=== PATIENT | male | born 1980 | race Caucasian/White ===

== ENCOUNTER 2016-11-01 08:41 | Emergency (ER) | payer MEDICAID ==
[2016-11-01 09:27] LABS: BASOPHILS 0.1 % (0-2); HEMATOCRIT 38.6 % (42.0-54.0); HEMOGLOBIN 12.3 g/dL (13.5-17.5); IMMATURE GRANULOCYTES 0.8 % (0-5); MCH 27.2 pg (26.0-34.0); MCHC 31.9 g/dL (31.0-37.0); MCV 85.2 fL (80.0-100.0); MEAN PLATELET VOLUME 10.6 fL (7.4-10.4); MONOCYTES 8.4 % (2-11); NEUTROPHILS 75.7 % (40-80); PLATELET COUNT 198 10x3/uL (130-400); RBC 4.53 10x6/uL (4.20-6.10); RDW 15.5 % (11.5-14.5); WBC 13.1 10x3/uL (4.8-10.8)
[2016-11-01 09:34] LABS: APPEARANCE SLT CLOUDY (CLEAR); BACTERIA MODERATE /hpf (NONE SEEN); BILIRUBIN NEGATIVE (NEGATIVE); COLOR YELLOW (YELLOW); GLUCOSE NEGATIVE (NEGATIVE); HYALINE CAST 0-5 /lpf (NONE SEEN); KETONE NEGATIVE (NEGATIVE); LEUKOCYTE ESTERASE 1+ (NEGATIVE); MUCUS <1+ /lpf (NONE SEEN); NITRITE NEGATIVE (NEGATIVE); PROTEIN 3+ mg/dL (NEGATIVE); RED CELLS - URINE 25-50 /hpf (0-5); SPECIFIC GRAVITY 1.025 (1.005-1.020); UROBILINOGEN NORMAL (NORMAL); WHITE CELLS - URINE >50 /hpf (0-5)
[2016-11-01 09:35] LABS: GRANULAR CAST OCC /lpf (NONE SEEN)
[2016-11-01 09:42] LABS: ALBUMIN 2.7 g/dL (3.4-5.0); ALKALINE PHOSPHATASE 77 U/L (46-116); ALT (SGPT) 152 U/L (10-68); BILIRUBIN - TOTAL 0.31 mg/dL (0.2-1.3); CALC OSMOLALITY 291 mosm/kg (275-300); CALCIUM 8.4 mg/dL (8.5-10.1); CARBON DIOXIDE 24.2 mmol/L (21.0-32.0); CHLORIDE - SERUM 108 mmol/L (98-107); CREATININE - SERUM 1.7 mg/dL (0.6-1.3); GLUCOSE 106 mg/dL (74-106); PROTEIN - SERUM 6.7 g/dL (6.4-8.2); SODIUM 139 mmol/L (136-145); UREA NITROGEN 53 mg/dL (7-18); eGFR NON AFRICAN AMERICAN 49 mL/min (90-120)
[2016-11-01 09:53] LABS: C-REACTIVE PROTEIN 2.6 mg/dL (0.0-0.9); CREATINE KINASE 303 UL (21-232); PRO BNP 398 pg/mL (0-125)
[2016-11-01 09:58] LABS: TROPONIN-I < 0.017 ng/mL (0.000-0.060)
[2016-11-01 11:45] LABS: COMPLEMENT C4 14.9 mg/dL (17.4-52.2)
[2016-11-01 12:30] LABS: ERYTHROCYTE SEDIMENTATION RATE 23 mm/hr (0-15)
[2016-11-04 10:11] LABS: ANTI-GLOMERULAR BASMENT MEMBRN 3 units (0-20)
[2016-11-04 11:11] LABS: ANA REFLEX - DIRECT Negative (Negative)
[2016-11-05 09:16] LABS: SPE - A/G RATIO 0.9 (0.7-1.7); SPE - ALPHA-1 GLOBULIN 0.2 g/dL (0.0-0.4); SPE - ALPHA-2 GLOBULIN 0.7 g/dL (0.4-1.0); SPE - BETA GLOBULIN 0.9 g/dL (0.7-1.3); SPE - GAMMA GLOBULIN 1.5 g/dL (0.4-1.8); SPE - M-SPIKE Not Observed g/dL (Not Observed); SPE - TOTAL PROTEIN 6.3 g/dL (6.0-8.5)
[2016-11-05 17:11] LABS: ANCA - ANTIMYELOPEROXIDASE <9.0 U/mL (0.0-9.0); ANCA - ANTIPROTEINASE 3 <3.5 U/mL (0.0-3.5); ANCA - ATYPICAL <1:20 titer (Neg:<1:20); ANCA - CYTOPLASMIC <1:20 titer (Neg:<1:20); ANCA - PERINUCLEAR <1:20 titer (Neg:<1:20)
== END 2016-11-01 13:48 | disposition home or self-care (01) ==
LOC: D.ER 08:41
PROVIDERS: Family Medicine; Internal Medicine Nephrology
DX: N28.9 Disorder of kidney and ureter, unspecified (principal); R31.9 Hematuria, unspecified; R80.9 Proteinuria, unspecified

== ENCOUNTER 2016-11-07 10:16 | Emergency (ER) | payer MEDICAID ==
[~2016-11-07] VITALS: Ht 167.6 cm; Wt 182.7 kg
[2016-11-07] MEDS ORDERED: FUROSEMIDE20 MG PO (13:23)
[2016-11-07 13:28] VITALS: BP 186/92; Ht 167.6 cm; Wt 182.7 kg
[2016-11-07 16:39] LABS: BASOPHILS 0.1 % (0-2); EOSINOPHILS 1.9 % (0-7); HEMATOCRIT 34.8 % (42.0-54.0); HEMOGLOBIN 11.2 g/dL (13.5-17.5); IMMATURE GRANULOCYTES 0.5 % (0-5); LYMPHOCYTES 9.7 % (15-50); MCH 27.1 pg (26.0-34.0); MCHC 32.2 g/dL (31.0-37.0); MCV 84.1 fL (80.0-100.0); MEAN PLATELET VOLUME 11.4 fL (7.4-10.4); MONOCYTES 8.5 % (2-11); NEUTROPHILS 79.3 % (40-80); PLATELET COUNT 226 10x3/uL (130-400); RBC 4.14 10x6/uL (4.20-6.10); RDW 15.1 % (11.5-14.5); WBC 12.3 10x3/uL (4.8-10.8)
[2016-11-07 16:51] LABS: ALBUMIN 2.6 g/dL (3.4-5.0); ALKALINE PHOSPHATASE 61 U/L (46-116); ALT (SGPT) 87 U/L (10-68); BILIRUBIN - TOTAL 0.45 mg/dL (0.2-1.3); CALC OSMOLALITY 295 mosm/kg (275-300); CALCIUM 8.4 mg/dL (8.5-10.1); CARBON DIOXIDE 26.9 mmol/L (21.0-32.0); CHLORIDE - SERUM 108 mmol/L (98-107); CREATININE - SERUM 1.9 mg/dL (0.6-1.3); GLUCOSE 103 mg/dL (74-106); POTASSIUM - SERUM 4.8 mmol/L (3.5-5.1); PROTEIN - SERUM 6.8 g/dL (6.4-8.2); SODIUM 141 mmol/L (136-145); UREA NITROGEN 55 mg/dL (7-18); eGFR NON AFRICAN AMERICAN 43 mL/min (90-120)
--- NOTE | 2016-11-07 16:55 | NUR ---
1330 UPON ASSESSING PT, HE STATED HE WAS "SHORT OF BREATH DUE TO ALL MY SWELLING." AT THIS TIME IR NURSE BRANDI WAS NOTIFIED AND CAME TO BEDSIDE. NC PLACED AT 2L, WHICH PT STATED WAS HELPING. UPON FURTHER ASSESSMENT PITTING GENERALIZED EDEMA NOTED. AT THIS TIME LUIS AND BRANDI FROM IR WERE AT THE BEDSIDE. LUIS CONTACTED THE DOCTOR WHO PLACED THE RENAL BIOPSY ORDER-IT WAS THEN DECIDED THAT THE PATIENT BE SENT TO THE ER FOR FURTHER EVALUATION. HE WAS TRANSFERRED TO ER BY MYSELF AND LUIS.
[2016-11-07 17:01] LABS: PRO BNP 757 pg/mL (0-125)
[2016-11-07 17:02] LABS: TROPONIN-I < 0.017 ng/mL (0.000-0.060)
== END 2016-11-07 18:20 | disposition home or self-care (01) ==
LOC: D.ER 10:16 → D.OPS 10:16 → D.RAD 13:00 → EDSTATUS 13:00 → D.OPS 13:00 → D.ER 18:20
PROVIDERS: Emergency Medicine
DX: J81.1 Chronic pulmonary edema (principal); I12.9 Hypertensive chronic kidney disease with stage 1 through stage 4 chronic kidney disease, or unspecified chronic kidney disease; N18.9 Chronic kidney disease, unspecified; R00.1 Bradycardia, unspecified

== ENCOUNTER 2016-11-14 11:02 | Outpatient (CLI) | payer MEDICAID ==
[2016-11-14] VITALS (9 sets, daily range): BP systolic 136–178; BP diastolic 59–91; BMI 62.9
[~2016-11-14 11:02] MED LIST: FUROSEMIDE20 MG PO
[2016-11-14 13:10] LABS: BASOPHILS 0.1 % (0-2); EOSINOPHILS 2.5 % (0-7); HEMATOCRIT 35.6 % (42.0-54.0); HEMOGLOBIN 11.6 g/dL (13.5-17.5); IMMATURE GRANULOCYTES 0.2 % (0-5); LYMPHOCYTES 15.3 % (15-50); MCH 27.5 pg (26.0-34.0); MCHC 32.6 g/dL (31.0-37.0); MCV 84.4 fL (80.0-100.0); MEAN PLATELET VOLUME 11.6 fL (7.4-10.4); MONOCYTES 9.9 % (2-11); PLATELET COUNT 227 10x3/uL (130-400); RBC 4.22 10x6/uL (4.20-6.10); RDW 14.6 % (11.5-14.5); WBC 8.6 10x3/uL (4.8-10.8)
[2016-11-14 13:19] LABS: ANION GAP 9.3 mmol/L (8-16); CALCIUM 8.1 mg/dL (8.5-10.1); CARBON DIOXIDE 31.1 mmol/L (21.0-32.0); CREATININE - SERUM 1.9 mg/dL (0.6-1.3); POTASSIUM - SERUM 4.4 mmol/L (3.5-5.1)
[2016-11-14 13:20] LABS: APTT 30.4 SECONDS (22.8-39.4); INR 1.07 (0.85-1.17); PROTIME 13.8 SECONDS (11.6-15.0)
[2016-11-14] MEDS ORDERED: CATAPRES0.1 MG PO (13:37)
--- NOTE | 2016-11-14 17:11 | NUR ---
RECIEVED FROM SPECIALS. ALERT AND ORIENTED. V/S STABLE . DRSG TO LEFT LOWER BACK, CLEAN AND DRY. DENIES ANY NEEDS. CALL LIGHT IN REACH
--- NOTE | 2016-11-14 18:22 | NUR ---
LYING QUIETLY WITH FAMILY AT BEDSIDE. NO BLEEDING TO BIOPSY SITE TO LEFT LOWER BACK. WILL MONITOR
--- NOTE | 2016-11-14 19:33 | NUR ---
PT AWAKE AND ALERT, ORIENTED X4. FAMILY IN AT BEDSIDE. ASKING ABOUT HOME MEDICATIONS. DR THOMPSON ON THE FLOOR, ASKED ABOUT HOME MEDICATIONS. STATES STARTING PT ON LISINOPRIL 10 MG PO BID AND TO NOT GIVE CLONIDINE UNLESS SBP >180. ORDERS TO CONTINUE LASIX PER HIS HOME MED REC. PT AND FAMILY UPDATED ON POC. VERBALIZED UNDERSTANDING
[2016-11-15] VITALS: BP 182/74
--- NOTE | 2016-11-15 00:18 | NUR ---
IN BED RESTING QUIETLY. DENIES ANY PAIN OR NEEDS AT THIS TIME.
--- NOTE | 2016-11-15 01:56 | NUR ---
PTS BP 182/70. OBTAINED ORDER FROM DR. THOMPSON EARLIER TO GIVE CLONIDINE 0.1 MG FOR SBP OVER 180. AWAITING [employer] SUPERVISOR TO COME AND PULL MEDICATION.
[2016-11-15 04:00] VITALS: BP 147/82
[2016-11-15 05:20] LABS: BASOPHILS 0.1 % (0-2); EOSINOPHILS 2.1 % (0-7); IMMATURE GRANULOCYTES 0.4 % (0-5); LYMPHOCYTES 9.4 % (15-50); MCH 27.3 pg (26.0-34.0); MCHC 32.4 g/dL (31.0-37.0); MCV 84.4 fL (80.0-100.0); MEAN PLATELET VOLUME 11.6 fL (7.4-10.4); MONOCYTES 12.6 % (2-11); NEUTROPHILS 75.4 % (40-80); PLATELET COUNT 227 10x3/uL (130-400); RBC 4.03 10x6/uL (4.20-6.10); RDW 14.9 % (11.5-14.5)
[2016-11-15 05:27] LABS: WBC 10.9 10x3/uL (4.8-10.8)
[2016-11-15 07:38] VITALS: BP 164/70
--- NOTE | 2016-11-15 07:50 | NUR ---
URINE COLLECTED FOR RACKING.
[2016-11-15] MEDS ORDERED: LISINOPRIL10 MG PO (08:22)
[2016-11-15] MEDS ORDERED: ULTRACET TABLET1 TAB PO (08:23)
--- NOTE | 2016-11-15 10:07 | NUR ---
AWAITING DISCHARGE. NO CURRENT NEEDS.
--- NOTE | 2016-11-15 11:15 | NUR ---
DC INSTRUCTIONS REVIEWED WITH PT AND FAMILY. NO CURRENT QUESTIONS. WRITTEN RX PROVIDED FOR TRAMADOL AND LISINOPRIL GIVEN. LEFT CHEST IV DC'D CATH FULLY INTACT. STRESSED TO PT THE IMPORTANCE OF GOING DIRECTLY TO THE ER IN CASE OF URINATING BLOOD. REVIEWED ACTIVITY RESTRICTIONS WITH PT. INSTRUCTED TO CONTACT MD OFFICE IF ANY FURTHER QUESTIONS. PT VERBALIZES UNDERSTANDING. PT DC'D HOME.
== END 2016-11-15 11:21 | disposition home or self-care (01) ==
LOC: D.OPS 11:02 → D.M2 16:39
PROVIDERS: General Practice; Internal Medicine Nephrology
DX: N19 Unspecified kidney failure (principal); E88.09 Other disorders of plasma-protein metabolism, not elsewhere classified; R80.9 Proteinuria, unspecified; I10 Essential (primary) hypertension; E87.5 Hyperkalemia; Z87.891 Personal history of nicotine dependence

== ENCOUNTER → 2016-11-26 13:07 | Outpatient (CLI) | payer MEDICAID ==
[2016-11-14 18:09] VITALS: BMI 62.9
[~2016-11-26 13:07] MED LIST changes: +CATAPRES0.1 MG PO; +LISINOPRIL10 MG PO; +ULTRACET TABLET1 TAB PO
== END | disposition home or self-care (01) ==
LOC: EDSTATUS 09:32 → D.LAB 13:07
PROVIDERS: Internal Medicine Nephrology
DX: N04.3 Nephrotic syndrome with diffuse mesangial proliferative glomerulonephritis (principal); R80.9 Proteinuria, unspecified

== ENCOUNTER → 2018-05-27 07:17 | Outpatient (CLI) | payer OTHER ==
[2016-11-14 18:09] VITALS: BMI 62.9
== END | disposition home or self-care (01) ==
LOC: D.MRI 07:17
PROVIDERS: ATTEND Orthopaedic Surgery
DX: M17.0 Bilateral primary osteoarthritis of knee (principal)

== ENCOUNTER 2019-02-07 02:04 | Emergency (ER) | payer MEDICAID ==
[~2019-02-07] VITALS: Ht 167.6 cm; Wt 201.4 kg
[2019-02-07 02:10] VITALS: Ht 167.6 cm; Wt 201.4 kg
[2019-02-07] MEDS ORDERED: GLUCOPHAGE500 MG PO (02:12)
[2019-02-07] MEDS ORDERED: CLOTRIM ANTIFUN15 GM TOPICAL (02:33)
[2019-02-07] MEDS ORDERED: K-DUR20 MEQ PO (02:34)
[2019-02-07 02:44] VITALS: BP 136/73
== END 2019-02-07 02:45 | disposition home or self-care (01) ==
LOC: D.ER 02:04
DX: B35.6 Tinea cruris (principal); R22.2 Localized swelling, mass and lump, trunk; I10 Essential (primary) hypertension; E11.9 Type 2 diabetes mellitus without complications; Z79.84 Long term (current) use of oral hypoglycemic drugs; M54.9 Dorsalgia, unspecified